=== PATIENT | male | born 2000 | race Caucasian/White ===

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

== ENCOUNTER 2021-01-21 10:45 | Emergency (ER) | payer BC ==
--- NOTE | 2021-01-21 11:04 | ERPHSYRPT ---
- History of Present Illness Time Seen by Provider: 01/21/21 10:58 Historian: patient Exam Limitations: no limitations Physician History: This is a 20-year-old white male who has been diagnosed with hypothyroidism in the past and was placed on thyroid replacement. However, approximately 1 month ago he ran out of his medications and never refilled any medication. That includes his thyroid medicine and his Adderall. This morning, at 9 AM, he began having central, nonradiating chest pain of sudden onset. He is not short of breath. Patient states that he was also diagnosed with an arrhythmia. Patient denies fever. He denies cough. He denies abdominal pain. Patient did undergo a cardiac echocardiogram in October 2020. There was no evidence of any regional wall motion abnormality, the cardiac ejection fraction was 60%. There was trace tricuspid regurgitation, trace mitral regurgitation, trace pulmonary insufficiency. Timing/Duration: today, sudden (Worse with stretching his chest.) Activities at Onset: none Location: central Chest Pain Radiation: no radiation Severity of Pain-Max: mild Severity of Pain-Current: mild Modifying Factors: Improves With: nothing Associated Symptoms: denies symptoms Prior Chest Pain/Cardiac Workup: echocardiography Nitro Today/Relief: no nitro taken today Aspirin Treatment Today: no aspirin today Allergies/Adverse Reactions: No Known Drug Allergies Allergy (Verified 01/21/21 10:55) Home Medications: Amphet Asp/Amphet/D-Amphet [Adderall 30 mg Tablet] 30 mg PO DAILY 04/04/17 [Hist ory] Hx Tetanus, Diphtheria Vaccination/Date Given: Yes Hx Influenza Vaccination/Date Given: Yes (Jun, 2018) Hx Pneumococcal Vaccination/Date Given: No Travel Risk - International Travel Have you traveled outside of the country in past 3 weeks: No - Coronavirus Screening Are you exhibiting any of the following symptoms?: No Close contact with a COVID-19 positive Pt in past 14-21 Days: No - Vaccine Status Have you recieved a Covid-19 vaccination: No - Review of Systems Constitutional: No Symptoms Eyes: No Symptoms Ears, Nose, & Throat: No Symptoms Respiratory: No Symptoms Cardiac: Chest Pain Abdominal/Gastrointestinal: No Symptoms Genitourinary Symptoms: No Symptoms Musculoskeletal: No Symptoms Skin: No Symptoms Neurological: No Symptoms Psychological: No Symptoms Endocrine: No Symptoms Hematologic/Lymphatic: No Symptoms Immunological/Allergic: No Symptoms All Other Systems: Reviewed and Negative - Past Medical History Pertinent Past Medical History: No Neurological History: No Pertinent History ENT History: No Pertinent History Cardiac History: No Pertinent History Respiratory History: No Pertinent History Endocrine Medical History: No Pertinent History Musculoskeletal History: Fractures GI Medical History: No Pertinent History History: No Pertinent History Psycho-Social History: No Pertinent History Male Reproductive Disorders: No Pertinent History Other Medical History: 3 fractured fingers - Past Surgical History Past Surgical History: Yes Neuro Surgical History: No Pertinent History Cardiac: No Pertinent History Respiratory: No Pertinent History Gastrointestinal: No Pertinent History Genitourinary: No Pertinent History Musculoskeletal: No Pertinent History Male Surgical History: No Pertinent History Other Surgical History: tonsils/adenoids - Social History Smoking Status: Never smoker Exposure to second hand smoke: Yes Drug Use: none Patient Lives Alone: No - Nursing Vital Signs Nursing Vital Signs: Initial Vital Signs Temperature 98.0 F 01/21/21 10:55 Pulse Rate 75 01/21/21 10:55 Respiratory Rate 18 01/21/21 10:55 Blood Pressure 125/89 01/21/21 10:55 O2 Sat by Pulse Oximetry 100 01/21/21 10:55 Pain Scale Pain Intensity 0 - Physical Exam General Appearance: no apparent distress, alert, anxiety Eye Exam: PERRL/EOMI, eyes nml inspection Ears, Nose, Throat Exam: normal ENT inspection, moist mucous membranes Neck Exam: normal inspection, non-tender, supple, full range of motion Respiratory Exam: normal breath sounds, chest tenderness, lungs clear, airway intact, No respiratory distress Cardiovascular Exam: regular rate/rhythm, normal heart sounds, normal peripheral pulses Gastrointestinal/Abdomen Exam: soft, normal bowel sounds, No tenderness Rectal Exam: not done Back Exam: normal inspection, normal range of motion, No CVA tenderness, No vertebral tenderness Extremity Exam: normal inspection, normal range of motion, pelvis stable Neurologic Exam: alert, oriented x 3, cooperative, 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 No comparison EKG available.) Ordered Tests: Active Orders 24 hr Category Date Time Status Clean Catch Urine Specimen STAT Care 01/21/21 11:06 Active EKG-ER Only STAT Care 01/21/21 11:06 Active IV Insertion STAT Care 01/21/21 11:06 Active CBC W DIFF Stat Lab 01/21/21 11:20 Completed CMP Stat Lab 01/21/21 11:20 Completed D-DIMER QUANTITATIVE Stat Lab 01/21/21 11:20 Completed PROTIME WITH INR Stat Lab 01/21/21 11:20 Completed T4 (Thyroxine) Stat Lab 01/21/21 11:20 Completed TROPONIN Q3H Lab 01/21/21 11:20 Completed TROPONIN Q3H Lab 01/21/21 14:15 Ordered TROPONIN Q3H Lab 01/21/21 17:15 Ordered TROPONIN Q3H Lab 01/21/21 20:15 Ordered TROPONIN Q3H Lab 01/21/21 23:15 Ordered TSH, 3RD Generation Stat Lab 01/21/21 11:20 Completed Urine Triage Profile Stat Lab 01/21/21 11:09 Completed Medication Summary Discontinued Medications Generic Name Dose Route Start Last Admin Trade Name Freq PRN Reason Stop Dose Admin Aspirin 324 mg 01/21/21 11:06 01/21/21 11:18 Baby Aspirin 81 Mg Chew PO 01/21/21 11:07 324 mg STAT ONE Administration Aspirin Confirm 01/21/21 11:17 Baby Aspirin 81 Mg Chew Administered 01/21/21 11:18 Dose 324 mg .ROUTE .STK-MED ONE Lab/Rad Data: Laboratory Result Diagrams 01/21/21 11:20 01/21/21 11:20 Laboratory Results 01/21/21 01/21/21 01/21/21 Range/Units 11:20 11:20 11:20 WBC (4.0-10.5) K/mm3 RBC (4.1-5.6) M/mm3 Hgb (12.5-18.0) gm/dl Hct (42-50) % MCV (78-100) fl MCH (26-32) pg MCHC (32-36) g/dl RDW (11.5-14.0) % Plt Count (150-450) K/mm3 MPV (7.5-11.0) fl Gran % (36.0-66.0) % Eos # (Auto) (0-0.5) Absolute Lymphs (auto) (1.0-4.6) Absolute Monos (auto) (0.0-1.3) Lymphocytes % (24.0-44.0) % Monocytes % (0.0-12.0) % Eosinophils % (0.00-5.0) % Basophils % (0.0-0.4) % Absolute Granulocytes (1.4-6.9) Basophils # (0-0.4) PT 11.8 (8.83-12.87) SECONDS INR 1.04 (0.8-3.0) D-Dimer < 215 L (215-500) ng/mL Sodium 140 (137-145) mmol/L Potassium 4.5 (3.5-5.1) mmol/L Chloride 101 (98-107) mmol/L Carbon Dioxide 31 H (22-30) mmol/L Anion Gap 13.2 (5-15) MEQ/L BUN 15 (9-20) mg/dL Creatinine 0.90 (0.66-1.25) mg/dL Estimated GFR > 60.0 ML/MIN Glucose 114 H (74-106) mg/dL Calcium 9.9 (8.4-10.2) mg/dL Total Bilirubin 0.60 (0.2-1.3) mg/dL AST 25 (17-59) U/L ALT 14 (0-50) U/L Alkaline Phosphatase 63 (38-126) U/L Troponin I < 0.012 (0.000-0.034) ng/mL Serum Total Protein 7.6 (6.3-8.2) g/dL Albumin 4.9 (3.5-5.0) g/dL Thyroxine (T4) 9.07 (5.53-10.96) ug/dL TSH 3rd Generation 3.340 (0.47-4.68) mIU/L Urine Opiates Level (NEGATIVE) Ur Methadone (NEGATIVE) Urine Barbiturates (NEGATIVE) Ur Phencyclidine (PCP) (NEGATIVE) Urine Amphetamine (NEGATIVE) U Benzodiazepine Level (NEGATIVE) Urine Cocaine (NEGATIVE) Urine Marijuana (THC) (NEGATIVE) 01/21/21 01/21/21 Range/Units 11:20 11:09 WBC 4.8 (4.0-10.5) K/mm3 RBC 5.13 (4.1-5.6) M/mm3 Hgb 16.0 (12.5-18.0) gm/dl Hct 46.5 (42-50) % MCV 90.6 (78-100) fl MCH 31.2 (26-32) pg MCHC 34.4 (32-36) g/dl RDW 12.1 (11.5-14.0) % Plt Count 193 (150-450) K/mm3 MPV 11.2 H (7.5-11.0) fl Gran % 54.7 (36.0-66.0) % Eos # (Auto) 0.03 (0-0.5) Absolute Lymphs (auto) 1.66 (1.0-4.6) Absolute Monos (auto) 0.46 (0.0-1.3) Lymphocytes % 34.4 (24.0-44.0) % Monocytes % 9.5 (0.0-12.0) % Eosinophils % 0.6 (0.00-5.0) % Basophils % 0.8 (0.0-0.4) % Absolute Granulocytes 2.63 (1.4-6.9) Basophils # 0.04 (0-0.4) PT (8.83-12.87) SECONDS INR (0.8-3.0) D-Dimer (215-500) ng/mL Sodium (137-145) mmol/L Potassium (3.5-5.1) mmol/L Chloride (98-107) mmol/L Carbon Dioxide (22-30) mmol/L Anion Gap (5-15) MEQ/L BUN (9-20) mg/dL Creatinine (0.66-1.25) mg/dL Estimated GFR ML/MIN Glucose (74-106) mg/dL Calcium (8.4-10.2) mg/dL Total Bilirubin (0.2-1.3) mg/dL AST (17-59) U/L ALT (0-50) U/L Alkaline Phosphatase (38-126) U/L Troponin I (0.000-0.034) ng/mL Serum Total Protein (6.3-8.2) g/dL Albumin (3.5-5.0) g/dL Thyroxine (T4) (5.53-10.96) ug/dL TSH 3rd Generation (0.47-4.68) mIU/L Urine Opiates Level NEGATIVE (NEGATIVE) Ur Methadone NEGATIVE (NEGATIVE) Urine Barbiturates NEGATIVE (NEGATIVE) Ur Phencyclidine (PCP) NEGATIVE (NEGATIVE) Urine Amphetamine NEGATIVE (NEGATIVE) U Benzodiazepine Level NEGATIVE (NEGATIVE) Urine Cocaine NEGATIVE (NEGATIVE) Urine Marijuana (THC) NEGATIVE (NEGATIVE) - Progress Progress: improved, re-examined Air Movement: good - Departure Departure Disposition: Home Clinical Impression: Non-cardiac chest pain Condition: Stable Critical Care Time: No Referrals: EILEEN MOODY [Primary Care Provider] - Additional Instructions: 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 Take your medication as prescribed.
[2021-01-21] MEDS ORDERED: BABY ASPIRIN 81 MG CHEW PO ONE (11:06)
[2021-01-21] MEDS ORDERED: BABY ASPIRIN 81 MG CHEW ONE (11:17)
[2021-01-21 11:25] LABS: Absolute Neutrophil Ct (ANC) 2.63 (1.4-6.9); BASOPHIL % 0.8 % (0.0-0.4); Basophil (Absolute #) 0.04 (0-0.4); Eosinophil % 0.6 % (0.00-5.0); Eosinophil (Absolute #) 0.03 (0-0.5); Hematocrit 46.5 % (42-50); Lymphocyte (Absolute #) 1.66 (1.0-4.6); Lymphocytes % 34.4 % (24.0-44.0); Mean Cell Volume 90.6 fl (78-100); Mean Corpuscular Hemoglobin 31.2 pg (26-32); Mean Corpuscular Hgb Concent. 34.4 g/dl (32-36); Mean Platelet Volume 11.2 fl (7.5-11.0); Monocyte (Absolute #) 0.46 (0.0-1.3); Monocytes % 9.5 % (0.0-12.0); Neutrophil % 54.7 % (36.0-66.0); Platelet Count 193 K/mm3 (150-450); Red Blood Count 5.13 M/mm3 (4.1-5.6); Red Cell Distribution Width 12.1 % (11.5-14.0); White Blood Count 4.8 K/mm3 (4.0-10.5)
[2021-01-21 11:28] LABS: INR 1.04 (0.8-3.0); PROTIME 11.8 SECONDS (8.83-12.87)
[2021-01-21 11:41] LABS: D-DIMER QUANTITATIVE < 215 ng/mL (215-500)
[2021-01-21 11:41] LABS: Amphetamine,Urine NEGATIVE (NEGATIVE); Barbiturate,Urine NEGATIVE (NEGATIVE); Benzodiazepine,Urine NEGATIVE (NEGATIVE); Cocaine,Urine NEGATIVE (NEGATIVE); Methadone,Urine NEGATIVE (NEGATIVE); Opiate,Urine NEGATIVE (NEGATIVE); PCP,Urine NEGATIVE (NEGATIVE); THC,Urine NEGATIVE (NEGATIVE)
[2021-01-21 12:07] LABS: ALBUMIN 4.9 g/dL (3.5-5.0); ALKALINE PHOSPHATASE 63 U/L (38-126); ANION GAP 13.2 MEQ/L (5-15); BLOOD UREA NITROGEN 15 mg/dL (9-20); CHLORIDE 101 mmol/L (98-107); Calcium 9.9 mg/dL (8.4-10.2); Carbon Dioxide 31 mmol/L (22-30); EST GLOMERULAR FILTRATION RATE > 60.0 ML/MIN; Glucose 114 mg/dL (74-106); Potassium 4.5 mmol/L (3.5-5.1); SGOT/AST 25 U/L (17-59); SGPT/ALT 14 U/L (0-50); SODIUM 140 mmol/L (137-145); T4 (Thyroxine) 9.07 ug/dL (5.53-10.96); Total Protein 7.6 g/dL (6.3-8.2)
[2021-01-21 12:49] VITALS: BP 127/61; PULSE 68; O2SAT 99
== END 2021-01-21 13:02 | disposition home or self-care (01) ==
LOC: ED 10:45
DX: R07.89 Other chest pain (principal)
CPT/HCPCS: 36000; 36415; 80053; 80307; 84436; 84443; 84484; 85025; 85379; 85610; 93005; 99284; A9270-GY

== ENCOUNTER 2022-06-12 17:25 | Emergency (ER) | payer BC ==
--- NOTE | 2022-06-12 17:46 | ERPHSYRPT ---
- History of Present Illness Time Seen by Provider: 06/12/22 17:46 Historian: patient Exam Limitations: no limitations Physician History: This is a 21-year-old white male whose had no prior abdominal surgeries and is a patient of nurse practitioner Bettina Quiroz and presents with 2-week history of constipation. Patient states that he has not had a bowel movement to his recollection in 2 weeks. He went to see Bettina Quiroz a couple days ago and he was placed on Dulcolax and has had a few loose stools that were very mild and not typical for him. He does not have significant abdominal pain and has had no nausea or vomiting. He does have a history of hypothyroidism. Prior to the last 2 weeks he has never had a problem with constipation. Patient states that he drinks plenty fluids and this includes a large amount of water daily. He is very active. He has not changed his eating habits. He is not changed any medications or added supplements to his daily regimen. Patient states he has not tried any other type of laxative or method to relieve his constipation other than the Dulcolax Timing/Duration: week(s) (2) Activities at Onset: none Quality: other Abdominal Pain Onset Location: other (No pain no pain) Pain Radiation: no radiation Severity of Pain-Max: none Severity of Pain-Current: none Modifying Factors: Improves With: nothing Associated Symptoms: denies symptoms Previous symptoms: no prior history Allergies/Adverse Reactions: No Known Drug Allergies Allergy (Verified 06/12/22 17:51) Home Medications: Dextroamphetamine/Amphetamine [Adderall 30 mg Tablet] 30 mg PO DAILY 04/04/17 [History] Levothyroxine Sodium 50 Mcg [Synthroid 50 Mcg] 50 mcg PO DAILY 06/12/22 [History] Hx Tetanus, Diphtheria Vaccination/Date Given: Yes Hx Influenza Vaccination/Date Given: Yes (Jun, 2018) Hx Pneumococcal Vaccination/Date Given: No Travel Risk - International Travel Have you traveled outside of the country in past 3 weeks: No - Coronavirus Screening Are you exhibiting any of the following symptoms?: No Close contact with a COVID-19 positive Pt in past 14-21 Days: No - Vaccine Status Have you recieved a Covid-19 vaccination: No - Review of Systems Constitutional: No Symptoms Eyes: No Symptoms Ears, Nose, & Throat: No Symptoms Respiratory: No Symptoms Cardiac: No Symptoms Abdominal/Gastrointestinal: Constipation, No Abdominal Pain, No Nausea, No Vomiting, No Diarrhea Genitourinary Symptoms: No Symptoms Musculoskeletal: No Symptoms Skin: No Symptoms Neurological: No Symptoms Psychological: No Symptoms Endocrine: No Symptoms Hematologic/Lymphatic: No Symptoms Immunological/Allergic: No Symptoms All Other Systems: Reviewed and Negative - Past Medical History Pertinent Past Medical History: No Neurological History: No Pertinent History ENT History: No Pertinent History Cardiac History: No Pertinent History Respiratory History: No Pertinent History Endocrine Medical History: No Pertinent History Musculoskeletal History: Fractures GI Medical History: No Pertinent History History: No Pertinent History Psycho-Social History: No Pertinent History Male Reproductive Disorders: No Pertinent History Other Medical History: 3 fractured fingers - Past Surgical History Past Surgical History: Yes Neuro Surgical History: No Pertinent History Cardiac: No Pertinent History Respiratory: No Pertinent History Gastrointestinal: No Pertinent History Genitourinary: No Pertinent History Musculoskeletal: No Pertinent History Male Surgical History: No Pertinent History Other Surgical History: tonsils/adenoids - Social History Smoking Status: Never smoker Exposure to second hand smoke: Yes Drug Use: none Patient Lives Alone: No - Nursing Vital Signs Nursing Vital Signs: Initial Vital Signs Temperature 97.0 F 06/12/22 17:46 Pulse Rate 98 H 06/12/22 17:46 Respiratory Rate 18 06/12/22 17:46 Blood Pressure 137/74 06/12/22 17:46 O2 Sat by Pulse Oximetry 95 06/12/22 17:46 Pain Scale Pain Intensity 0 - Physical Exam General Appearance: no apparent distress, alert Eye Exam: PERRL/EOMI, eyes nml inspection Ears, Nose, Throat Exam: normal ENT inspection, moist mucous membranes Neck Exam: normal inspection, non-tender, supple, full range of motion Respiratory Exam: normal breath sounds, lungs clear, airway intact, No chest tenderness, No respiratory distress Cardiovascular Exam: regular rate/rhythm, normal heart sounds, normal peripheral pulses Gastrointestinal/Abdomen Exam: soft, normal bowel sounds, No tenderness, No guarding Rectal Exam: not done Back Exam: normal inspection, normal range of motion, No CVA tenderness, No vertebral tenderness Extremity Exam: normal inspection, normal range of motion, pelvis stable Neurologic Exam: alert, oriented x 3, cooperative, teletype installer II-XII nml as tested, normal mood/affect, nml cerebellar function, nml station & gait, sensation nml Skin Exam: normal color, warm, dry Lymphatic Exam: No adenopathy SpO2 Interpretation: normal O2 Delivery: Room Air - Course Nursing assessment & vital signs reviewed: Yes Ordered Tests: Active Orders 24 hr Category Date Time Status ABDOMEN AND PELVIS W/0 CONTRAS [CT] Stat Exams 06/12/22 18:45 Taken - Progress Progress: unchanged Progress Note: 06/12/22 20:38 CAT scan of the abdomen pelvis shows a little amount of feces right hemicolon. There is a normal appendix. Counseled pt/family regarding: diagnosis, need for follow-up, rad results - Departure Departure Disposition: Home Clinical Impression: Constipation Condition: Stable Critical Care Time: No Referrals: EILEEN QUIROZ NP [Primary Care Provider] - Follow up/PCP as directed Additional Instructions: Drink the magnesium citrate rapidly as discussed. Starting tomorrow may use daily MiraLAX. Follow the directions on the [id number] product package. Increase your fiber in your diet. Contact your primary care provider for further evaluation and management.
[2022-06-12] MEDS ORDERED: CITROMA 296 ML PO ONE (20:37)
[2022-06-12] MEDS ORDERED: CITROMA 296 ML ONE (20:41)
[2022-06-12 20:44] VITALS: BP 146/81; PULSE 76; O2SAT 99
--- NOTE | 2022-06-13 08:44 | XRAY ---
Indication: Abdomen pain and constipation 2 weeks. Multiple contiguous axial images obtained through the abdomen and pelvis without contrast. Comparison: None Lung bases clear. Heart not enlarged. Stomach distended with food/fluid. Noncontrasted stomach and bowel loops appear nonobstructed with normal appendix. Little fecal debris in the right hemicolon. Gallbladder contracted without gallstones. No free fluid/air. Remaining liver, gallbladder, pancreas, spleen, adrenal glands, kidneys, ureters, bladder, and aorta are unremarkable for noncontrast exam. Osseous structures intact with incidental L4/L5 limbus vertebrae. No ventral or inguinal hernias. Impression: Negative CT abdomen/pelvis without contrast exam.
== END 2022-06-12 20:48 | disposition home or self-care (01) ==
LOC: ED 17:25
DX: K59.00 Constipation, unspecified (principal); Z79.899 Other long term (current) drug therapy; Z28.310 Unvaccinated for COVID-19
CPT/HCPCS: 74176; 99283; A9270-GY